=== PATIENT | male | born 1985 | race Caucasian/White ===

== ENCOUNTER 2017-06-25 16:26 | Emergency (ER) | payer SELFPAY ==
--- NOTE | 2017-06-25 17:23 | ER Document Report ---
HPI - HPI Pain Level: 5 Notes: Patient is a 32-year-old male who presents to the ED complaining of low back pain and right wrist pain status post fall. Patient states he also started coughing since the fall. 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 Patient denies any head injury, loss of consciousness, nausea/vomiting. Patient states that his pain is primarily there when he moves, but is able to ambulate without any difficulties. Patient has not noticed any obvious swelling or bruising. He is still eating and drinking without difficulties. He is urinating normally and having normal bowel movements. Patient states that he did take some leftover narcotics prior to arrival for pain. Mother states that he is at baseline with mentation and speech as well as his behavior. Patient also notes that he stepped on a screw 2 days ago and believes his last tetanus was over 10 years ago. He has not had any other pain or redness/swelling to the foot. Denies any other injections or surgeries to his lower back. Patient admits to smoking but denies any IV drug use. No other significant past medical history. Denies any headache, fever, head injury , neck pain, changes in vision/speech/mentation/hearing, URI, sore throat, chest pain, palpitations, syncope, shortness of breath, wheeze, dyspnea, abdominal pain, nausea/vomiting/diarrhea, urinary retention, dysuria, hematuria , loss of control of bowel or bladder, numbness/tingling, saddle anesthesia, muscle paralysis/weakness, or rash. - ROS Systems Reviewed and Negative: Yes All other systems reviewed and negative Past Medical History - Social History Smoking Status: Current Every Day Smoker Family History: Reviewed & Not Pertinent Past Surgical History: Reports: Hx Orthopedic Surgery - right forearm - Immunizations Hx Diphtheria, Pertussis, Tetanus Vaccination: Yes Vertical Provider Document - CONSTITUTIONAL Agree With Documented VS: Yes Notes: PHYSICAL EXAMINATION: GENERAL: Well-appearing, well-nourished and in no acute distress. A&Ox4. Answers questions appropriately. Pt is tall with long arms and thin torso. HEAD: Atraumatic, normocephalic. Non-tender. No mcgraw sign EYES: Pupils equal round and reactive to light, extraocular movements intact, sclera anicteric, conjunctiva are normal. No raccoon eyes/entrapment. No nystagmus ENT: EAC clear b/l. TM's intact b/l without erythema, fluid, or perforation. Nares patent and without discharge. oropharynx clear without exudates. No tonsilar hypertrophy or erythema. Moist mucous membranes. No sinus tenderness. No hemotympanum/CSF discharge. NECK: Normal range of motion, supple without lymphadenopathy. No rigidity. No midline tenderness. Spurling negative. NEXUS negative. + mild tenderness to the C-paraspinal mm b/l. Chest: No ecchymosis/deformity. No flail chest. equal rise/fall. Non-tender LUNGS: Breath sounds clear to auscultation bilaterally and equal. No wheezes rales or rhonchi. HEART: Regular rate and rhythm without murmurs, rubs, gallops. ABDOMEN: Soft, nontender, nondistended abdomen. No guarding, no rebound. No masses appreciated. Normal bowel sounds present. No CVA tenderness bilaterally. No ecchymosis. Musculoskeletal: Rt wrist: FROM to passive/active. Strength 5+/5. + tenderness to the distal wrist. No obvious swelling, ecchymosis, abrasion, erythema noted. N/V intact distal. Ext's otherwise b/l: FROM to passive/active. Strength 5+/5. No deficits noted. No bony tenderness of extremities. No puncture site noted to the foot. No signs of infection. Back: FROM to passive/active. Strength 5+/5. No vertebral point tenderness, stepoffs, or deformities. No other bony tenderness or ecchymosis. SLR negative b/l. + tenderness to the L-paraspinal mm, left- mild. Extremities: No cyanosis, clubbing, or edema b/l. Peripheral pulses 2+. Capillary refill less than 2 seconds. NEUROLOGICAL: NIH 0. GCS 15. MMSE intact. Cranial nerves grossly intact. Normal speech, normal gait. Normal sensory, motor exams. Reflexes 2+ b/l. RAPHAEL' s negative. Pronator drift negative. Heel/bedolla, finger/nose wnl. PSYCH: Normal mood, normal affect. SKIN: Warm, Dry, normal turgor, no rashes or lesions noted. - INFECTION CONTROL TRAVEL OUTSIDE OF THE [place] IN LAST 30 DAYS: No Course - Re-evaluation Re-evalutation: 06/25/17 18:25 Patient is an afebrile, well-hydrated, 32-year-old male who presents to the ED with low back strain right wrist contusion based on H&P today. Vitals are stable. MMSE intact, Nexus criteria negative, NIH 0, GCS 15. X-rays of the L- spine, right wrist, and chest were unremarkable for any acute pathology. PE is otherwise unremarkable for any focal neurological deficits, neurovascular compress, obvious tendon/ligament rupture, obvious fracture/dislocation, septic joint. Low suspicion for any meningitis, fracture, expanding/ruptured AAA, cauda equina syndrome, epidural mass lesion/abscess, herniated disc causing severe spinal stenosis, or other systemic infection at this time. Patient is aware that his condition can change from initial presentation and that he needs monitor symptoms closely for any acute changes. No other labs or imaging warranted at this time based on H&P. Patient is tolerating p.o. without difficulties and is ambulatory without any issues. Tdap given today. I will send him home with a prescription for naproxen and baclofen that he may use as directed. Conservative measures for symptoms otherwise. Recheck with your PCM in 3-5 days. Consider consult orthopedics and physical therapy. Return to the ED with any worsening/concerning symptoms otherwise as reviewed discharge. Patient is in agreement. Discharge - Discharge Clinical Impression: Right wrist pain Low back strain Qualifiers: Encounter type: initial encounter Qualified Code(s): S39.012A - Strain of muscle, fascia and tendon of lower back, initial encounter Condition: Stable Disposition: HOME, SELF-CARE Instructions: Stretching Exercises for the Back ([facility]), Low Back Pain ([facility]) Additional Instructions: Rest, Ice, Compression, Elevation Tylenol/ibuprofen as needed Light stretches daily Strength exercises as able Moist heat and massage may help F/u with your PCP in 3-5 days for a recheck Consider consult(s) with Orthopedics/physical therapy for ongoing/worsening symptoms Return to the ED with any worsening symptoms and/or development of fever, headache, chest pain, palpitations, syncope, shortness of breath, trouble breathing, abdominal pain, n/v/d, muscle weakness/paralysis, saddle anesthesia, numbness/tingling, swelling, redness, or other worsening symptoms that are concerning to you. Prescriptions: Baclofen [Baclofen 10 mg Tablet] 5 - 10 mg PO BID PRN #10 tablet PRN Reason: Naproxen 500 mg PO BID PRN #30 tablet PRN Reason: Referrals: [facility] [Provider Group] - Follow up as needed [facility] [Provider Group] - Follow up as needed [facility] [Provider Group] - Follow up as needed
[2017-06-25] MEDS ORDERED: DIPH/PERTUSS(ACELL)/TETANUS VAC/PF 0.5 ML SYR (>=10YO) IM ONE (17:36)
--- NOTE | 2017-06-25 18:06 | RADIOLOGY REPORT (SQ) ---
EXAM DESCRIPTION: CHEST PA/LAT COMPLETED DATE/TIME: 06/25/2017 5:56 pm REASON FOR STUDY: cough COMPARISON: January 2007 EXAM PARAMETERS: NUMBER OF VIEWS: two views TECHNIQUE: Digital Frontal and Lateral radiographic views of the chest acquired. RADIATION DOSE: NA LIMITATIONS: none FINDINGS: LUNGS AND PLEURA: No opacities, masses or pneumothorax. No pleural effusion. MEDIASTINUM AND HILAR STRUCTURES: No masses or contour abnormalities. HEART AND VASCULAR STRUCTURES: Heart normal size. No evidence for failure. BONES: No acute findings. HARDWARE: None in the chest. OTHER: No other significant finding. IMPRESSION: NO SIGNIFICANT RADIOGRAPHIC FINDING IN THE CHEST. TECHNICAL DOCUMENTATION: JOB ID: [id number] [employer]- All Rights Reserved
--- NOTE | 2017-06-25 18:08 | RADIOLOGY REPORT (SQ) ---
EXAM DESCRIPTION: WRIST RIGHT 3 VIEWS COMPLETED DATE/TIME: 06/25/2017 5:56 pm REASON FOR STUDY: wrist pain s/p fall COMPARISON: None. NUMBER OF VIEWS: Three views. TECHNIQUE: AP, lateral, and oblique radiographic images acquired of the right wrist. LIMITATIONS: None. FINDINGS: MINERALIZATION: Normal. BONES: No acute fracture or dislocation. No worrisome bone lesions. Normal alignment. SOFT TISSUES: No soft tissue swelling. No foreign body. OTHER: No other significant finding. IMPRESSION: NEGATIVE STUDY OF THE RIGHT WRIST. NO RADIOGRAPHIC EVIDENCE OF ACUTE INJURY. TECHNICAL DOCUMENTATION: JOB ID: [id number] [employer]- All Rights Reserved
--- NOTE | 2017-06-25 18:10 | RADIOLOGY REPORT (SQ) ---
EXAM DESCRIPTION: L SPINE WHOLE COMPLETED DATE/TIME: 06/25/2017 5:56 pm REASON FOR STUDY: back pain s/p fall COMPARISON: November 2014 NUMBER OF VIEWS: Five views including obliques. TECHNIQUE: AP, lateral, oblique, and sacral radiographic images acquired of the lumbar spine. LIMITATIONS: None. FINDINGS: MINERALIZATION: Normal. SEGMENTATION: Normal. No transitional anatomy. ALIGNMENT: Normal. VERTEBRAE: Maintained height. No fracture or worrisome bone lesion. DISCS: Preserved height. No significant osteophytes or end plate irregularity. POSTERIOR ELEMENTS: Pedicles and facets are intact. No pars defect or posterior arch defects. HARDWARE: None in the spine. PARASPINAL SOFT TISSUES: Normal. PELVIS: Intact as visualized. No fractures or worrisome bone lesions. SI joints intact. OTHER: No other significant finding. IMPRESSION: NORMAL 5 VIEW LUMBAR SPINE. TECHNICAL DOCUMENTATION: JOB ID: [id number] [employer]- All Rights Reserved
== END 2017-06-25 18:55 | disposition home or self-care (01) ==
LOC: ER 16:26
DX: S39.012A Strain of muscle, fascia and tendon of lower back, initial encounter (principal); M25.531 Pain in right wrist; Z23 Encounter for immunization; W13.2XXA Fall from, out of or through roof, initial encounter; Y93.H3 Activity, building and construction; Y92.008 Other place in unspecified non-institutional (private) residence as the place of occurrence of the external cause
CPT/HCPCS: 71046; 72110; 90471; 90715; 99283

== ENCOUNTER 2018-02-25 13:12 | Emergency (ER) | payer OTHER ==
[2018-02-25] MEDS ORDERED: HYDROCODONE/ACETAMINOPHEN 5-325 MG TABLET PO ONE (13:44)
--- NOTE | 2018-02-25 13:47 | ER Document Report ---
ED Medical Screen (RME) - General Chief Complaint: Knee Pain Stated Complaint: RIGHT KNEE PAIN Time Seen by Provider: 02/25/18 13:44 Mode of Arrival: Ambulatory Information source: Patient TRAVEL OUTSIDE OF THE [place] IN LAST 30 DAYS: No - HPI Patient complains to provider of: R knee pain Onset: Other - pt with injury to R knee whiole at work 3 days ago -- states "kneecap got out of place'" He put knee cap back but it has been painful and swollen since - Related Data Allergies/Adverse Reactions: No Known Allergies Allergy (Verified 02/25/18 13:13) Past Medical History Renal/ Medical History: Denies: Hx Peritoneal Dialysis Psychiatric Medical History: Reports: Hx Depression Past Surgical History: Reports: Hx Orthopedic Surgery - right forearm - Immunizations Hx Diphtheria, Pertussis, Tetanus Vaccination: Yes Physical Exam - Vital signs Vitals: Temp Pulse Resp BP Pulse Ox 98.3 F 97 16 112/65 99 02/25/18 13:29 02/25/18 13:29 02/25/18 13:29 02/25/18 13:29 02/25/18 13:29 Course - Vital Signs Vital signs: Temp Pulse Resp BP Pulse Ox 98.3 F 97 16 112/65 99 02/25/18 13:29 02/25/18 13:29 02/25/18 13:29 02/25/18 13:29 02/25/18 13:29
--- NOTE | 2018-02-25 14:26 | RADIOLOGY REPORT (SQ) ---
EXAM DESCRIPTION: KNEE RIGHT 4 VIEWS COMPLETED DATE/TIME: 02/25/2018 2:08 pm REASON FOR STUDY: RR knee pain COMPARISON: None. NUMBER OF VIEWS: Four views. TECHNIQUE: AP, lateral, and both oblique radiographic images acquired of the right knee. LIMITATIONS: None. FINDINGS: MINERALIZATION: Normal. BONES: No acute fracture or dislocation. No worrisome bone lesions. JOINT: There is a moderate joint effusion. SOFT TISSUES: Prepatellar soft tissue swelling. OTHER: No other significant finding. IMPRESSION: Prepatellar soft tissue swelling. Moderate joint effusion. No osseous abnormality. TECHNICAL DOCUMENTATION: JOB ID: [id number] [employer]- All Rights Reserved Reading location - IP/workstation name: [email or web address]
[2018-02-25] MEDS ORDERED: LIDOCAINE 1% INJ-PF (10 MG/ML) 30 ML SDV INJ ONE (15:39)
--- NOTE | 2018-02-25 15:40 | ER Document Report ---
ED Extremity Problem, Lower - General Chief Complaint: Knee Pain Stated Complaint: RIGHT KNEE PAIN Time Seen by Provider: 02/25/18 13:44 Mode of Arrival: Ambulatory Notes: This is a 33-year-old male who states that his right knee is extremely painful. States that approximately 5 days ago he twisted it while working. The kneecap popped out of place. He was able to reduce it himself. Since that time he has continued to hurt. Not getting better. Denies any fever, chills, sweats. Is having pain that radiates down the back of his calf as well. TRAVEL OUTSIDE OF THE [place] IN LAST 30 DAYS: No - HPI Patient complains to provider of: Pain, Swelling Location: Knee - Related Data Allergies/Adverse Reactions: No Known Allergies Allergy (Verified 02/25/18 13:13) Past Medical History - General Information source: Patient - Social History Smoking Status: Current Every Day Smoker Chew tobacco use (# tins/day): No Frequency of alcohol use: Occasional Drug Abuse: None Lives with: Family Family History: Reviewed & Not Pertinent Patient has suicidal ideation: No Patient has homicidal ideation: No - Medical History Medical History: Negative Renal/ Medical History: Denies: Hx Peritoneal Dialysis Psychiatric Medical History: Reports: Hx Depression Past Surgical History: Reports: Hx Oral Surgery - wisdom teeth, Hx Orthopedic Surgery - right forearm - Immunizations Hx Diphtheria, Pertussis, Tetanus Vaccination: Yes Review of Systems - Review of Systems Notes: Constitutional: denies: Chills, Diaphoresis, Fever, Malaise, Weakness EENT: denies: Eye discharge, Blurred vision, Tearing, Double vision, Nose congestion, Nose discharge, Throat swelling, Mouth pain Cardiovascular: denies: Palpitations, Heart racing, Orthopnea, Dyspnea, Chest pain Respiratory: denies: Cough, Hurts to breathe, Wheezing, Shortness of breath Gastrointestinal: denies: Abdominal pain, Diarrhea, Nausea, Vomiting, Black stools, bright red blood in stool Genitourinary: denies: Burning, Dysuria, Discharge, Frequency, Flank pain, Hematuria Musculoskeletal: Pain and swelling to the right knee with pain in the right calf. Hematologic/Lymphatic: denies: Anemia, Easy bleeding, Easy bruising, Blood clots Neurological/Psychological: denies: Confusion, Dementia, Depression, Loss of consciousness Skin: No lesions, no masses, no skin breakdown, no abscesses Physical Exam - Vital signs Vitals: Temp Pulse Resp BP Pulse Ox 98.3 F 97 16 112/65 99 02/25/18 13:29 02/25/18 13:29 02/25/18 13:29 02/25/18 13:29 02/25/18 13:29 Interpretation: Normal - Respiratory Respiratory status: No respiratory distress Chest status: Nontender Breath sounds: Normal Chest palpation: Normal - Cardiovascular Rhythm: Regular Heart sounds: Normal auscultation Murmur: No - Abdominal Inspection: Normal Distension: No distension Bowel sounds: Normal Tenderness: Nontender Organomegaly: No organomegaly - Extremities General upper extremity: Normal inspection, Nontender. No: Edema General lower extremity: Other - The right lower extremity demonstrates some remarkably swollen right knee. There is no signs of cellulitis. There is obvious ballottement. Tenderness to palpation around the effusion on the right knee. There is no significant swelling of the right calf. Palpable pulses are present in the posterior tib and dorsalis pedis of the right lower extremity. - Neurological Neuro grossly intact: Yes Cognition: Normal Orientation: AAOx4 Abigail Coma Scale Eye Opening: Spontaneous Abigail Coma Scale Verbal: Oriented Abigail Coma Scale Motor: Obeys Commands Abigail Coma Scale Total: 15 Speech: Normal Motor strength normal: LUE, RUE, LLE, RLE Sensory: Normal - Skin Skin Temperature: Warm Skin Moisture: Dry Skin Color: Normal Course - Re-evaluation Re-evalutation: 02/25/18 17:28 Right knee arthrocentesis: Patient was consented verbally for a arthrocentesis. The area was cleaned with surgical scrub and then prepped with Betadine and allowed to dry. A 23-gauge needle was used to anesthetize the injection site. After proper anesthesia was obtained a 16-gauge needle was used to advance into the effusion. 60 cc of bloody synovial fluid was removed from the knee with patient tolerating procedure well. The area was dressed with a sterile dressing and a wrap. He tolerated procedure well. 02/25/18 18:32 No evidence of DVT. Patient placed in compression dressing. We will give follow-up information for orthopedics as more likely patient did have some sort of ligamental derangement. - Vital Signs Vital signs: Temp Pulse Resp BP Pulse Ox 98.3 F 97 16 112/65 99 02/25/18 13:29 02/25/18 13:29 02/25/18 13:29 02/25/18 13:29 02/25/18 13:29 Discharge - Discharge Clinical Impression: Traumatic hemarthrosis of knee Qualifiers: Encounter type: initial encounter Laterality: right Qualified Code(s): S83.91XA - Sprain of unspecified site of right knee, initial encounter Condition: Good Disposition: HOME, SELF-CARE Instructions: Knee Immobilizing Splint ([facility]), Ice & Elevation ([facility]), Oral Narcotic Medication ([facility]), Suspected Internal Knee Injury ([facility]), Use of Crutches ([facility]), Knee Effusion ([facility]) Additional Instructions: Use compression dressing as instructed. Continue to use knee immobilizer and crutches as needed. Pain medication as needed. It will be very important that you follow-up with orthopedic surgery as you more likely have an injury to one of the ligaments in your knee. You had a arthrocentesis which is a removal of fluid from your knee today. Please keep the knee clean and dry for the next 24 hours. You may remove Band-Aid after 24 hours. In the event that you notice any redness, swelling, worsening symptoms please return immediately for repeat evaluation. Prescriptions: Ibuprofen [Motrin 800 mg Tablet] 800 mg PO Q8H PRN 10 Days #30 tab PRN Reason: For Pain Scale 3-4 Oxycodone HCl/Acetaminophen [Percocet 5-325 mg Tablet] 1 tab PO Q6H PRN 5 Days # 15 tablet PRN Reason: For Breakthrough Pain Forms: Return to Work Referrals: QUIRINO LIU MD [ACTIVE STAFF] - Follow up in 3-5 days
[2018-02-25] MEDS ORDERED: MORPHINE SULFATE 10 MG/ML INJ IM ONE (16:47)
[2018-02-25 18:56] VITALS: BP 116/72
--- NOTE | 2018-02-26 08:33 | XCELERA REPORT ---
[address] [place] [facility] [id number] Lower Extremity Venous Evaluation Procedure: Color flow and duplex imaging of the veins of the right lower extremity as well as the left Common Femoral vein. Right Sided Venous Evaluation Normal vessel filling wall to wall, compression and augmentation as well as Colour flow down to the infrageniculate veins. Left Sided Venous Evaluation The left common femoral vein is fully compressible. Spontaneous and phasic flow is present in the left common femoral vein. Interpretation Summary No duplex evidence of DVT or obstruction in the right lower extremity nor in the left Common Femoral vein. Name: OPAL MARINO Age: 33 yrs Gender: Male : 1985 Patient Status: Emergency Patient Location: ER Study Date: 02/25/2018 06:05 PM Reason For Study: pain in right leg and calf after trauma Ordering Physician: WILLI LYNNE Performed By: Inez Hernández : WILLI LYNNE > Nadeem Rossi
== END 2018-02-25 18:56 | disposition home or self-care (01) ==
LOC: ER 13:12
DX: S83.91XA Sprain of unspecified site of right knee, initial encounter (principal); M25.561 Pain in right knee; M79.661 Pain in right lower leg; X50.1XXA Overexertion from prolonged static or awkward postures, initial encounter; Y99.0 Civilian activity done for income or pay; F17.200 Nicotine dependence, unspecified, uncomplicated
CPT/HCPCS: 99284; 96372; 93971 ×2; 73564; 20610; L1830; J3490; J2270